=== PATIENT | female | born 1945 | race Caucasian/White ===

== ENCOUNTER → 2025-01-04 10:23 | Outpatient (REF) | payer MEDICARE, OTHER, SELFPAY | LOC: HWRAD 10:23 | PROVIDERS: ATTENDING PHYSICIAN Internal Medicine Rheumatology; FAMILY PHYSICIAN Internal Medicine | DX: M80.0 Age-related osteoporosis with current pathological fracture (principal); M81.0 Age-related osteoporosis without current pathological fracture | CPT/HCPCS: 77080; 77081 ==